=== PATIENT | male | born 1975 | race Native Hawaiian/Other Pacific Islander ===

== ENCOUNTER 2022-08-14 13:45 | Outpatient (RCR) | payer MEDICARE, MEDICAID, SELFPAY | END 2022-10-25 10:02 | disposition home or self-care (01) | PROVIDERS: PCP Internal Medicine; Visit Provider Internal Medicine | DX: R51.9 Headache, unspecified (principal); M54.2 Cervicalgia; Z51.89 Encounter for other specified aftercare | CPT/HCPCS: 97110; 97161 ==

== ENCOUNTER 2022-11-05 10:51 | Outpatient (CLI) | payer MEDICARE, MEDICAID, SELFPAY ==
[2022-11-05 21:45] LABS: Glucose* 94 mg/dL (60-115)
== END 2022-11-05 10:52 | disposition home or self-care (01) ==
LOC: FRMREF 10:51
PROVIDERS: PCP Internal Medicine; Visit Provider Physician Assistant Medical
DX: E11.9 Type 2 diabetes mellitus without complications (principal)
CPT/HCPCS: 82947

== ENCOUNTER 2023-02-13 16:45 | Outpatient (RCR) | payer MEDICARE, MEDICAID, SELFPAY ==
--- NOTE | 2023-02-13 15:37 | PT.OPE ---
PT [place] [facility] Eval PT [facility] Outpatient Eval Start: 01/29/23 15:30 Freq: Status: Active Protocol: Document 01/29/23 15:31 CJT (Rec: 01/29/23 17:03 CJT [id number]) E-signed By Juan Jose Hopkins PT Physical Therapy Outpatient Evaluation Insurance Information Recert Due Date 03/12/23 Insurance Name Medicaid Medical Diagnosis G35 - multiple sclerosis, relapsing-remitting Treating Diagnosis R26.2 - impaired gait R26.81 - unsteadiness on feet Impaired transfers Referring MD Pineda, Leticia MALDONADO Subjective Subjective Pt complains of pain in his R LE. He also has a lot of numbness in his R LE when he is sleeping and in the morning when he wakes up. Feels that he cannot move his R leg without use of his hands in the mornings. Pt feels relief of his pain when he stretches his ankle in an inversion motion in standing. Also says that he feels a vázquez of energy through his brain when he performs this stretch. Pt denies medication for pain this date. Pt lives in an apartment by himself with no stairs to enter. Pt also complains of weakness in his R UE that makes it difficult to write. Pt would like to improve his R leg strength in therapy. Pt to see Dr. Pineda again in one week (10/18). Pain Comments Date of Last Physician Visit 11/05/22 Date of Next Physician Visit 02/05/23 Current Work Status Unemployed Preferred Name Oscar Precautions Therapy Limitations/Systems Review Communication Ability,Vision, Hearing,Language Barrier Objective Range of Motion LE ROM grossly WNL bilaterally Strength R knee extension: 2+/5 MMT R knee flexion: 3/5 MMT L knee extension: 4+/5 MMT L knee flexion: 4+/5 MMT R ankle DF: 2/5 MMT L ankle DF: unable to test although strength does not appear to be full; pt does not understand directions from therapist Balance & Gait TU.4 seconds 5 Times Sit to Stand: 26.64 seconds Gait: circumduction, hip hike on R during swing phase; pt unable to flex hip and knee during ambulation; requires use of walker for all ambulation Assessment Assessment/Impression Oscar is a pleasant male who presents to our clinic with his friend Lucio for evaluation and treatment of relapsing- remitting multiple sclerosis. Evaluation time was limited today due to patient arriving 20 minutes late. Oscar's primary complaints are pain and numbness in his R LE. He tells me many times during our evaluation today that his entire R leg is numb and when it is numb is causes pain. Oscar was evaluated by myself last year and these complaints of pain and numbness are unchanged. I have informed him that his leg numbness is not something that I can likely help him with, but he does not give verbal understanding of this. Oscar 's transfers and mobility are very limited due to his LE weakness. Compensatory patterns are necessary for him to swing his his R LE forward during ambulation and his R quad is not strong enough to stabilize his body while he is in standing. He will benefit from transfer and gait training, bed mobility training, and energy conservation techniques. I encouraged Oscar to ask his neurologist about medications for pain including Gabapentin. He tells me that he is taking something for pain, which we later found was a Magnesium supplement. Oscar has a daughter who is 25 but she is not involved in his life in any way according to his friend Lucio. Lucio and another friend have helped Oscar over the past year or so with rides to medical appointments as well as other cares. It does sound like Oscar is essentially home bound and I do feel that he would be a good candidate for home health services. With the complexity of Oscar's condition, I do not feel that our services are up to the standards that he will require and should instead seek care with a rehab clinic that specializes in neurological disorders. For the time being, Oscar and Darcie have agreed to work with each other once per week for the next 6 weeks to work on his gait, functional mobility, and transfers. We will discuss referrals for home health and neurological specialty rehab care when he returns to our clinic. Primary Functional Limitations ambulation, transfers, bed mobility Plan of Care Rehabilitation Potential Poor Physical Therapy Goals STG - to be completed in 2-3 weeks: 1. Pt to consistently complete exercises in his HEP to allow for optimal progression of neuromuscular retraining to improve gait and transfers. LTG - to be completed in 4-6 weeks: 1. Pt to be I with HEP so that he may I manage progression of symptoms. 2. Pt will complete TUG with use of 4WW in 25 seconds or less to demonstrate improved functional strength and mobility. 3. Pt will complete 5 sit-to- stand transfers in 20 seconds or less to demonstrate improved functional strength and endurance. Treatment Plan/Direct Interventions Gait Training,Neuromuscular Re -ed,Therapeutic Activities, Therapeutic Exercises Frequency/Duration 1/week for 6 weeks Patient Will Be Discharged From Therapy Completion of LTG(s),Skills Plateau,Independent w/HEP, Independently Progressing Evaluation Billing Untimed Code Treatment Minutes 40 PT Eval No Charge No Complexity Low Certification Information Initial Certification Date 01/29/23 Ending Certification Date 03/12/23 Provider Signature Shows Agreement With POC & Medical Necessity Physician Signature & Date Requested Please Sign/Date Here Physician Comment/Change : Physician NPI Number #
--- NOTE | 2023-02-13 15:37 | REH.PT ---
Ramos Chawla, I had sent Oscar's evaluation to his neurologist but thought maybe you would like to have a look. I'm not sure Oscar is appropriate for outpatient therapy and would like to take steps to set up home care PT for him as this will be much easier for him and his caregivers. He is coming in to see me this afternoon and I will talk with him and his caregiver in more depth about home health today. Emma
== END 2023-05-15 23:59 | disposition home or self-care (01) ==
PROVIDERS: PCP Internal Medicine; Visit Provider Internal Medicine
DX: G35 Multiple sclerosis (principal); Z51.89 Encounter for other specified aftercare
CPT/HCPCS: 97110; 97161

== ENCOUNTER 2023-02-14 11:42 | Outpatient (CLI) | payer MEDICARE, MEDICAID, SELFPAY | END 2023-02-14 11:43 | disposition home or self-care (01) | PROVIDERS: PCP Internal Medicine; Visit Provider Physician Assistant Medical | DX: E78.5 Hyperlipidemia, unspecified (principal) | CPT/HCPCS: 80053; 80061 ==

== ENCOUNTER 2023-02-19 15:55 | Outpatient (CLI) | payer MEDICARE, MEDICAID, SELFPAY ==
--- NOTE | 2023-02-19 16:00 | CRLHL7_ITS ---
For Patients: As a result of the Century Cures Act, medical imaging exams and procedure reports are released immediately into your electronic medical record. You may view this report before your referring provider. If you have questions, please contact your health care provider. INDICATION: Right testicular pain. COMPARISON: None. TECHNIQUE: Davenport scale imaging was performed of the scrotum. In addition color Doppler and spectral Doppler analysis was performed of the testes. FINDINGS: The testes demonstrate normal arterial and venous blood flow on color Doppler and spectral Doppler analysis. The testes have uniform echogenicity with no evidence of a suspicious mass or area of inflammation. The right testis measures 4.9 x 2.6 x 3.3 cm in size and the left testis measures 4.7 x 2.4 x 3.3 cm. The epididymis appears normal bilaterally. There is no evidence of a hydrocele or varicocele. IMPRESSION: Normal scrotal ultrasound. Dictated by Gera Sanchez MD @ 02/19/2023 6:58:57 PM (Electronically Signed)
== END 2023-02-19 15:56 | disposition home or self-care (01) ==
LOC: US 15:57
PROVIDERS: PCP Physician Assistant Medical; Visit Provider Physician Assistant Medical
DX: N50.811 Right testicular pain (principal)
CPT/HCPCS: 76870; 93976